=== PATIENT | male | born 1980 ===

== ENCOUNTER 2018-09-29 08:40 | Outpatient (CLI) | payer BC ==
--- NOTE | 2018-09-29 09:03 | ULT ---
ULTRASOUND ABDOMEN LIMITED: (RIGHT UPPER QUADRANT) DATE: 09-29-18 HISTORY: 38-year-old male with right upper quadrant abdominal pain. FINDINGS: The gallbladder has normal wall thickness and has no evidence of gallstones or sludge. The hepatic e chogenicity is normal. The right kidney has normal echogenicity and has no hydronephrosis. The panc reas is visualized, although ultrasound is relatively insensitive for pancreatic pathology compared t o CT and MRI. There is no biliary dilation. The common duct caliber is 4 mm. IMPRESSION: Normal. jn POS: CET
== END 2018-09-29 08:41 | disposition home or self-care (01) ==
LOC: ULT 08:40
PROVIDERS: ATTEND Family Medicine
DX: R74.8 Abnormal levels of other serum enzymes (principal)
CPT/HCPCS: 76705